=== PATIENT | female | born 1990 | race American Indian/Alaskan Native ===

== ENCOUNTER 2021-05-17 04:16 | Inpatient (IN) | payer OTHER ==
[2021-05-17] MEDS ORDERED: fentaNYL 100 MCG/2 ML INJ IV PRN (04:41)
[2021-05-17] MEDS ORDERED: ACETAMINOPHEN 325 MG TAB PO PRN (04:41)
[2021-05-17] MEDS ORDERED: BUTORPHANOL 2 MG/1 ML INJ IV PRN ×2 (04:41)
[2021-05-17] MEDS ORDERED: TERBUTALINE 1 MG/1 ML INJ SUB-Q PRN (04:41)
[2021-05-17] MEDS ORDERED: METHYLERGONOVINE MALEATE 0.2 MG/ML VIAL IM PRN (04:41)
[2021-05-17] MEDS ORDERED: ONDANSETRON 4 MG/2 ML INJ IV PRN ×2 (04:41→08:00)
[2021-05-17] MEDS ORDERED: LOPERAMIDE 2 MG CAP PO PRN (04:41)
[2021-05-17] MEDS ORDERED: CARBOPROST TROMETHAMINE 250 MCG/1 ML INJ IM PRN (04:41)
[2021-05-17] MEDS ORDERED: miSOPROStol 200 MCG TAB PR PRN (04:41)
[2021-05-17] MEDS ORDERED: OXYTOCIN 10 UNIT/1 ML INJ IM PRN (04:41)
[2021-05-17] MEDS ORDERED: NALOXONE 0.4 MG/1 ML INJ IV PRN (04:41)
[2021-05-17] MEDS ORDERED: ePHEDrine SULFATE 50 MG/1 ML INJ IV PRN (04:41)
[2021-05-17] MEDS ORDERED: MINERAL OIL 30 ML ORAL LIQD PO PRN (04:41)
[2021-05-17] MEDS ORDERED: LACTATED RINGERS 1,000 ML IV SCH (04:45)
[2021-05-17] MEDS ORDERED: PENICILLIN G POTASSIUM 5 MIL UNITS INJ IV ONE (04:52)
[2021-05-17 05:40] LABS: Basophils % (Auto) 0.3 % (0.0-1.8); Eosinophils # (Auto) 0.1 K/mm3 (0.0-0.4); Eosinophils % (Auto) 1.3 % (0.0-4.3); Hematocrit 35.4 % (30.3-42.9); Hemoglobin 11.4 gm/dl (10.1-14.3); Lymphocytes # (Auto) 1.6 K/mm3 (1.2-5.4); Mean Corpuscular HGB Conc 32 % (30-34); Mean Corpuscular Volume 82 fl (79-97); Monocytes # (Auto) 0.9 K/mm3 (0.0-0.8); Monocytes % (Auto) 11.5 % (0.0-7.3); Platelet Count 135 K/mm3 (140-440); Red Blood Count 4.34 M/mm3 (3.65-5.03); Red Cell Distribution Width 15.6 % (13.2-15.2)
[2021-05-17] MEDS ORDERED: LIDOCAINE (2%) 20 MG/1 ML VIAL 20 ML MDV INFILTRATI ONE (05:41)
[2021-05-17 05:43] LABS: Bilirubin,Urine NEG (Negative); Blood,Urine SM (Negative); Color,Urine Straw (Yellow); Mucus,Urine FEW /HPF; Protein,Urine <15 mg/dL mg/dL (Negative); Urobilinogen,Urine < 2.0 mg/dL (<2.0)
[2021-05-17 05:50] LABS: Amphetamine Screen,Urine Negative; Benzodiazepines Screen,Urine Negative; Cannabinoid Screen,Urine Negative; Cocaine Screen,Urine Negative; Methadone Screen,Urine Negative; Opiate Screen,Urine Negative
[2021-05-17] MEDS ORDERED: PENICILLIN G POTASSIUM 5 MIL.UNITS in SODIUM CHLORIDE 0.9% 100 ML IV ONE (06:00)
--- NOTE | 2021-05-17 06:05 | History and Physical Report ---
History of Present Illness Date of examination: 05/17/21 Date of admission: 05/17/21 04:41 Chief complaint: contractions since yesterday morning History of present illness: Pt reports she did not receive care d/t "I was moving around [facility], like to different apartments" Pt reports H/O 2 visits with the [facility], where she received her first ultrasound at 14weeks and was given a due date of 05/16/21. Pt reports no blood labs were drawn, "only urine". Pt admits to hospital visits at [facility] where she was told her "placenta and all the baby's organs and the fluid around the baby were all normal". No records present at this time. Consents signed to request records. 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 Reports +family history of DM and HTN in her mother Past History Past Medical History: no pertinent history Past Surgical History: no surgical history Family/Genetic History: diabetes, hypertension Social history: other (unstable housing and insufficient care) - Obstetrical History Expected Date of Delivery: 05/16/21 Actual Gestation: 40 Week(s) 1 Day(s) : 6 Para: 3 Hx # Term Pregnancies: 3 Number of Pregnancies: 0 Spontaneous Abortions: 0 Induced : 2 Number of Living Children: 3 Medications and Allergies Allergies Allergy/AdvReac Type Severity Reaction Status Date / Time No Known Allergies Allergy Verified 05/17/21 04:21 Active Meds: Active Medications Acetaminophen (Acetaminophen 325 Mg Tab) 650 mg PO Q4H PRN PRN Reason: Pain, Mild (1-3) Butorphanol Tartrate (Butorphanol 2 Mg/1 Ml Inj) 1 mg IV Q2H PRN PRN Reason: Pain, Moderate(4-6) LABOR PAIN Butorphanol Tartrate (Butorphanol 2 Mg/1 Ml Inj) 2 mg IV Q2H PRN PRN Reason: Pain , Severe (7-10) Carboprost Tromethamine (Carboprost Tromethamine 250 Mcg/1 Ml Inj) 250 mcg IM ONCE PRN PRN Reason: Uterine Bleeding Ephedrine Sulfate (Ephedrine Sulfate 50 Mg/1 Ml Inj) 10 mg IV Q2M PRN PRN Reason: Hypotension Fentanyl (Fentanyl 100 Mcg/2 Ml Inj) 100 mcg IV Q2H PRN PRN Reason: Pain,Severe (7-10) LABOR PAIN Lactated Ringer's (Lactated Ringers) 1,000 mls @ 125 mls/hr IV DIRECT BECK Penicillin G Potassium 2.5 mil (.units/ Sodium Chloride) 50 mls @ 100 mls/hr IV Q4H BECK; Protocol Penicillin G Potassium 5 mil. (units/ Sodium Chloride) 100 mls @ 200 mls/hr IV ONCE ONE Stop: 05/17/21 06:29 Loperamide HCl (Loperamide 2 Mg Cap) 2 mg PO ONCE PRN PRN Reason: give with Hemabate Methylergonovine Maleate (Methylergonovine Maleate 0.2 Mg/Ml Vial) 0.2 mg IM ONCE PRN PRN Reason: Uterine Bleeding Mineral Oil (Mineral Oil 30 Ml Oral Liqd) 30 ml PO QHS PRN PRN Reason: Constipation Misoprostol (Misoprostol 200 Mcg Tab) 800 mcg IL ONCE PRN PRN Reason: Uterine Bleeding Naloxone HCl (Naloxone 0.4 Mg/1 Ml Inj) 0.1 mg IV Q2MIN PRN PRN Reason: Res Rate </= 8 or 02 SAT < 92% Ondansetron HCl (Ondansetron 4 Mg/2 Ml Inj) 4 mg IV Q8H PRN PRN Reason: Nausea And Vomiting Oxytocin (Oxytocin 10 Unit/1 Ml Inj) 10 unit IM ONCE PRN PRN Reason: Uterine Bleeding Terbutaline Sulfate (Terbutaline 1 Mg/1 Ml Inj) 0.25 mg SUB-Q ONCE PRN PRN Reason: Hyperstimulation/Hypertonicity Review of Systems All systems: negative Genitourinary: contractions, no vaginal bleeding, no leakage of fluid, no genital sores - Vital Signs Vital signs: Vital Signs Pulse Ox 91 05/17/21 04:54 Temp Pulse Resp BP Pulse Ox 98.0 F 89 94 05/17/21 05:24 05/17/21 06:03 05/17/21 06:03 - Physical Exam Breasts: Positive: deferred Cardiovascular: Regular rate Lungs: Positive: Normal air movement Abdomen: Positive: normal appearance, soft. Negative: distention, tenderness, guarding Genitourinary (Female): Positive: normal external genitalia, normal perenium Vulva: both: normal Vagina: Positive: normal moisture Uterus: Positive: normal size, normal contour, other (gravid) Anus/Rectum: Positive: normal perianal skin, heme negative Extremities: Positive: normal - Obstetrical FHR: auscultation normal, category 1 Uterine Contraction Monitor Mode: External Cervical Dilatation: 5.5 Cervical Effacement Percentage: 80 station: -2 Uterine Contraction Frequency (min): 1.5-3 Uterine Contraction Duration: 60-120 Uterine Contraction Pattern: Regular Uterine Tone Measurement Phase: Resting Results Result Diagrams: 05/17/21 05:03 Abnormal lab results 05/17/21 Range/Units 05:03 [place] % (Auto) 11.5 H (0.0-7.3) % [place] # (Auto) 0.9 H (0.0-0.8) K/mm3 All other labs normal. Assessment and Plan admit to labor initiate IV draw admission and care labs pt may have epidural if labs stable GBS treatment prophylaxis Request records from other facilities POC d/w pt. Pt verbalizes understanding and agrees to POC. Anticipate . Dr Georges made aware - Patient Problems (1) 40 weeks gestation of Current Visit: Yes Status: Acute (2) Insufficient antepartum care Current Visit: Yes Status: Acute
[2021-05-17 06:15] LABS: Hepatitis C Virus Antibody Non-Reactive (NonReactive)
[2021-05-17] MEDS ORDERED: OXYTOCIN DRIP 30,000 MILLIUNITS/500 ML BAG IV ONE (07:01)
--- NOTE | 2021-05-17 07:28 | Procedure Note ---
OB Delivery Note - Delivery Date of Delivery: 05/17/21 Tax Manager Public: CLIFFORD FRANKLIN (Kevin ROBERTSON) Estimated blood loss: <100cc - Vaginal Delivery presentation: vertex Delivery position: OA (TOÑO) Intrapartum events: no care, precipitous labor- <3hr Delivery induction: none Delivery monitor: external FHT, external uterine Route of delivery: Delivery placenta: spontaneous Delivery cord: 3 umbilical vessels Episiotomy: none Delivery laceration: none Anesthesia: none Delivery comments: Baby boy delivered over an intact perineum. TOÑO presentation. Baby placed on mom's ABD. 3 vessel cord clamped and cut after cessation of pulsation. Cord blood collected. Placenta delivered spontaneously via [place], appears to be intact and complete. Uterine tone firm with massage and IV Pitocin. No laceration noted. EBL 50. Baby's weight 7lbs 14oz, APGARS 8/9. Mom and baby LDR stable. AILYN Ludwig CNM - Infant A at 1 minute: 8 at 5 minutes: 9 Gender: Male (7#14oz)
[2021-05-17] MEDS ORDERED: WITCH HAZEL/ GLYCERIN PAD TP PRN (08:00)
[2021-05-17] MEDS ORDERED: LANOLIN/ZINC/DIMETHICONE (LANSINOH) 7 GM TP PRN (08:00)
[2021-05-17] MEDS ORDERED: IBUPROFEN 600 MG TAB PO SCH (08:00)
[2021-05-17] MEDS ORDERED: BENZOCAINE/MENTHOL 20/0.5% TOP SPRAY 56 GM TP PRN (08:00)
[2021-05-17] MEDS ORDERED: PROMETHAZINE 25 MG TAB PO PRN (08:00)
[2021-05-17] MEDS ORDERED: PROMETHAZINE 25 MG RECT SUPP PR PRN (08:00)
[2021-05-17] MEDS ORDERED: diphenhydrAMINE 25 MG CAP PO PRN (08:00)
[2021-05-17] MEDS: IBUPROFEN 800 MG TAB PO SCH ×3 (08:01→23:50)
[2021-05-17] MEDS ORDERED: PENICILLIN G POTASSIUM 2.5 MIL.UNITS in SODIUM CHLORIDE 0.9% 50 ML IV SCH (09:00)
[2021-05-17] MEDS ORDERED: PHENOL 1.4% 177 ML BOTTLE MM PRN (10:00)
[2021-05-17] MEDS: PRENATAL VIT27-FE FUMARATE-FOLIC ACID VIT TAB PO SCH (10:32)
[2021-05-17] MEDS: DOCUSATE SODIUM 100 MG CAP PO SCH ×2 (10:32→21:58)
[2021-05-17] MEDS: FERROUS SULFATE 325 MG TAB PO SCH ×2 (10:32→21:58)
[2021-05-17] MEDS ORDERED: ACETAMINOPHEN 500 MG TAB PO PRN (17:00)
[2021-05-17 21:34] LABS: Hematocrit 34.2 % (30.3-42.9); Hemoglobin 10.9 gm/dl (10.1-14.3)
[2021-05-17] MEDS ORDERED: MAGNESIUM HYDROXIDE (MOM) ORAL LIQD UDC PO PRN (22:00)
[2021-05-18] MEDS: IBUPROFEN 800 MG TAB PO SCH (05:49)
--- NOTE | 2021-05-18 06:30 | Discharge Summary ---
Providers - Providers Date of Admission: 05/17/21 04:41 Date of discharge: 05/18/21 Attending physician: RUMA BAEZA 05/18/21 05:50 Consult to Case Management [CONS] Routine Services Needed at Discharge: Senior Software Architect Additional Physician Instructions: No care. To make sure patient is safe at home and has everything she needs for infant. Primary care physician: DRUM SPRAYER Hospitalization Reason for admission: active labor Delivery: Episiotomy: none Laceration: none Other procedures: none complications: none Discharge diagnosis: IUP at term delivered baby: male (Does not want circumcision.) Pertinent studies: Pt presented to hospital no care. Case management to see patient before discharge home. Hospital course: S: Pt doing well. Ambulating, voiding, and passing flatus okay. BC: Nexplanon. O: VSS. Fundus firm, minimal lochia rubra noted. H/H 10.9/34.2. A: 31 y.o. s/p , no care. In good condition . \ D: Discharge patient home with instructions. Case management to see patient before discharge d/t no care. Condition at discharge: Good Disposition: 01 HOME / SELF CARE / HOMELESS Plan - Discharge Medications Prescriptions: Lidocain2.5%/Prilocai2.5% [Emla] 5 gm TP ONCE PRN #1 tube PRN Reason: Pain Ibuprofen [Motrin 800 MG tab] 800 mg PO Q8HR PRN #30 tablet PRN Reason: Pain - Provider Discharge Summary Activity: routine, no sex for 6 weeks, no heavy lifting 4 weeks, no strenuous exercise Diet: routine Instructions: routine Additional instructions: [] Smoking cessation referral if applicable(refer to patient education folder for contact #) [] Refer to [facility] Booklet Call your doctor immediately for: * Fever > 100.5 * Heavy vaginal bleeding ( >1 pad per hour) * Severe persistent headache * Shortness of breath * Reddened, hot, painful area to leg or breast * Congratulations on your baby boy! Please schedule a visit in the office in 4-6 wks. Should you have any questions or concerns , please do not hesitate to call our office at [phone] * Keep incision clean and dry at all times and follow doctor's instructions regarding bathing/showering - Follow up plan Follow up: PRIMARY CARE,MD [Primary Care Provider] - 7 Days VENKATA DEL CASTILLO MD [Staff Physician] - 6 Weeks
[2021-05-18] MEDS ORDERED: TETANUS,DIPH,PERTUSS(ACELL) VACCINE 0.5 ML SYRINGE IM ONE (09:00)
[2021-05-18] MEDS ORDERED: medroxyPROGESTERone ACETATE 150 MG/ML SYRINGE IM NR (10:00)
[2021-05-18] MEDS: PRENATAL VIT27-FE FUMARATE-FOLIC ACID VIT TAB PO SCH (10:09)
[2021-05-18] MEDS: FERROUS SULFATE 325 MG TAB PO SCH (10:09)
[2021-05-18] MEDS: DOCUSATE SODIUM 100 MG CAP PO SCH (10:09)
[2021-05-18 15:12] VITALS: BP 129/80
== END 2021-05-18 21:10 | disposition home or self-care (01) | DRG 775 ==
LOC: TRG 04:16 → LD 04:41 → TRG 04:41 → APU 04:51 → OB 09:22
PROVIDERS: ADMIT Obstetrics & Gynecology; ATTEND Obstetrics & Gynecology
PROC: 10E0XZZ Delivery of Products of Conception, External Approach (ICD-10-PCS; principal; 2021-05-17)
PROC: 3E0234Z Introduction of Serum, Toxoid and Vaccine into Muscle, Percutaneous Approach (ICD-10-PCS; 2021-05-18)
DX: O62.3 Precipitate labor (principal); Z3A.40 40 weeks gestation of pregnancy; Z37.0 Single live birth; Z20.822 Contact with and (suspected) exposure to COVID-19; Z23 Encounter for immunization
CPT/HCPCS: 36415; 80307; 81001; 85014; 85018; 85025; 86592; 86706; 86762; 86803; 86850; 86900; 86901; 87806; 96360; 96365; G0378; J2540; J2590; J7120; U0003